=== PATIENT | male | born 1990 | race Caucasian/White ===

== ENCOUNTER → 2017-01-30 10:57 | Outpatient (CLI) | payer MEDICAID ==
[2016-03-07 18:26] VITALS: BMI 25.4
[~2017-01-30 10:57] MED LIST: CARAFATE1 G PO; CARAFATE1 G/10 ML PO; DEMEROL50 MG PO; PHENERGAN25 MG RC; PRILOSEC20 MG PO; SYMBICORT 80-10.2 GM INH; VENTOLIN HFA18 GM INH; ZOFRAN ODT4 MG/UDTAB PO
== END | disposition home or self-care (01) ==
LOC: D.CT 10:57
DX: R31.9 Hematuria, unspecified (principal)

== ENCOUNTER 2017-04-23 18:54 | Emergency (ER) | payer MEDICAID ==
[2016-03-07 18:26] VITALS: BMI 25.4
== END 2017-04-23 21:08 | disposition home or self-care (01) ==
LOC: D.ER 18:54
DX: J45.901 Unspecified asthma with (acute) exacerbation (principal); R06.02 Shortness of breath; R06.2 Wheezing

== ENCOUNTER → 2017-09-25 19:48 | Emergency (ER) | payer MEDICAID ==
[2016-03-07 18:26] VITALS: BMI 25.4
== END | disposition home or self-care (01) ==
LOC: D.ER 19:48
DX: J20.9 Acute bronchitis, unspecified (principal); J45.909 Unspecified asthma, uncomplicated; Z87.09 Personal history of other diseases of the respiratory system

== ENCOUNTER → 2018-02-24 19:07 | Outpatient (CLI) | payer MEDICAID ==
[2016-03-07 18:26] VITALS: BMI 25.4
== END | disposition home or self-care (01) ==
LOC: D.SLEEP 19:07
DX: G47.9 Sleep disorder, unspecified (principal)

== ENCOUNTER 2019-05-31 01:47 | Emergency (ER) | payer MEDICAID ==
[~2019-05-31] VITALS: Ht 167.6 cm; Wt 73.6 kg
[2019-05-31 01:52] VITALS: Ht 167.6 cm; Wt 73.6 kg
[2019-05-31] MEDS ORDERED: ZOLOFT25 MG (01:55)
[2019-05-31] MEDS ORDERED: WELLBUTRIN SR150 MG (01:55)
[2019-05-31] MEDS ORDERED: SILVADENE20 GM TP (02:21)
[2019-05-31] MEDS ORDERED: TYLENOL W/CODEI1 TAB PO (02:21)
[2019-05-31 03:11] VITALS: BP 118/69
== END 2019-05-31 03:13 | disposition home or self-care (01) ==
LOC: D.ER 01:47
DX: T25.221A Burn of second degree of right foot, initial encounter (principal); X10.2XXA Contact with fats and cooking oils, initial encounter; Y93.G3 Activity, cooking and baking; Y92.89 Other specified places as the place of occurrence of the external cause

== ENCOUNTER 2020-08-05 23:12 | Emergency (ER) | payer MEDICAID ==
[~2020-08-05] VITALS: Ht 167.6 cm; Wt 72.7 kg
[~2020-08-05 23:12] MED LIST changes: +SILVADENE20 GM TP; +TYLENOL W/CODEI1 TAB PO; +WELLBUTRIN SR150 MG; +ZOLOFT25 MG
[2020-08-05 23:22] VITALS: Ht 167.6 cm; Wt 72.7 kg
[2020-08-05] MEDS ORDERED: NICODERM CQ1 EAC2 (23:25)
[2020-08-06 00:09] LABS: BASOPHILS 0.4 % (0-2); EOSINOPHILS 6.1 % (0-7); HEMATOCRIT 49.1 % (42.0-54.0); HEMOGLOBIN 16.3 g/dL (13.5-17.5); IMMATURE GRANULOCYTES 0.1 % (0-5); LYMPHOCYTES 29.5 % (15-50); MCH 30.3 pg (26.0-34.0); MCHC 33.2 g/dL (31.0-37.0); MCV 91.3 fL (80.0-100.0); MONOCYTES 5.5 % (2-11); NEUTROPHILS 58.4 % (40-80); RBC 5.38 10x6/uL (4.20-6.10); RDW 13.3 % (11.5-14.5); WBC 7.3 10x3/uL (4.8-10.8)
[2020-08-06 00:11] LABS: PLATELET COUNT 169 10x3/uL (130-400)
[2020-08-06 00:19] LABS: APTT 29.6 SECONDS (22.8-39.4)
[2020-08-06 00:20] LABS: D-DIMER-QUANTITATIVE 0.35 ug/mLFEU (0.20-0.54); INR 0.86 (0.85-1.17); PROTIME 11.7 SECONDS (11.6-15.0)
[2020-08-06 00:21] LABS: CALC OSMOLALITY 276 mosm/kg (275-300); CALCIUM 9.5 mg/dL (8.5-10.1); CARBON DIOXIDE 30.2 mmol/L (21.0-32.0); CHLORIDE - SERUM 103 mmol/L (98-107); GLUCOSE 99 mg/dL (74-106); POTASSIUM - SERUM 4.2 mmol/L (3.5-5.1); SODIUM 139 mmol/L (136-145); UREA NITROGEN 9 mg/dL (7-18); eGFR NON AFRICAN AMERICAN > 90 mL/min (90-120)
[2020-08-06] MEDS ORDERED: DICLOFENAC SODI50 MG PO (00:28)
[2020-08-06 00:37] LABS: ALKALINE PHOSPHATASE 101 U/L (30-120); ALT (SGPT) 47 U/L (10-68); CKMB 0.6 U/L (0.0-3.6); CREATINE KINASE 107 UL (21-232); PROTEIN - SERUM 7.6 g/dL (6.4-8.2)
[2020-08-06 00:38] LABS: TROPONIN-I < 0.017 ng/mL (0.000-0.060)
[2020-08-06 00:55] VITALS: BP 114/68
== END 2020-08-06 00:55 | disposition home or self-care (01) ==
LOC: D.ER 23:12
PROVIDERS: Family Medicine
DX: R07.89 Other chest pain (principal); J45.909 Unspecified asthma, uncomplicated; Z72.0 Tobacco use; R53.1 Weakness